=== PATIENT | female | born 1990 | race Caucasian/White ===

== ENCOUNTER → 2020-02-03 16:49 | Outpatient (CLI) | payer MEDICAID, SELFPAY ==
[2015-09-25 14:30] VITALS: BMI 24.7
[2020-02-07 20:07] LABS: Chlamydia By Nucleic Acid AMP Negative (Negative)
[2020-02-07 21:35] LABS: Gonococcus By Nucleic Acid AMP Negative (Negative)
[2020-02-08 13:57] LABS: HPV Reflexed? NOT INDICATED
== END ==
PROVIDERS: Visit Provider Obstetrics & Gynecology
DX: Z12.4 Encounter for screening for malignant neoplasm of cervix (principal); Z11.3 Encounter for screening for infections with a predominantly sexual mode of transmission
CPT/HCPCS: 87491; 87591; 88175; G0145

== ENCOUNTER 2020-04-03 14:19 | Emergency (ER) | payer MEDICAID, SELFPAY ==
[2020-04-03 14:21] VITALS: BP 118/65; PULSE 61; RESP 15; TEMP 35.3; O2SAT 97; BMI 30.3
--- NOTE | 2020-04-03 14:39 | CT_ITS ---
STUDY: CT FACIAL BONES WITHOUT CONTRAST REASON FOR EXAM: Female, 29 years old. S/P FALL HITTING HEAD X1 MONTH AGO HEADACHE,PAIN BEHIND RIGHT EYE RADIATION DOSAGE (If Supplied By Facility): CTDIvol = ( 29.38 ) mGy, DLP = ( 569.49 ) mGycm TECHNIQUE: Axial CT images of the facial bones were obtained with multiplanar reconstruction. The protocol utilizes one or more of the following dose reduction techniques: automated exposure control, adjustment of the mA and/or KV according to the patient size, and/or use of iterative reconstruction techniques. Individualized dose optimization techniques were used for this CT. COMPARISON: No relevant priors. FINDINGS: Soft Tissues: Normal: No focal or diffuse soft tissue swelling. Facial Bones: Normal: No fracture or destructive process. Mandible/TMJ: Normal. Orbital Contents: Normal globes, extraocular muscles, optic nerves, intraconal and extraconal spaces. Normal lamina papyracea. No visualized retinal or intraorbital hemorrhage. No fluid collections are seen. No visualized periorbital soft tissue swelling. Visualized Paranasal Sinuses: Normal. Visualized Mastoid Air Cells: Normal. CT/Sinus/Facial Bone IMPRESSION: Normal CT of the facial bones without contrast. Electronically Signed: Maurice Scott MD at 16:59 EST , Service support ,
--- NOTE | 2020-04-03 14:39 | CT_ITS ---
STUDY: CT BRAIN WITHOUT CONTRAST REASON FOR EXAM: Female, 29 years old. S/P FALL HITTING HEAD X1 MONTH AGO HEADACHE,PAIN BEHIND RIGHT EYE RADIATION DOSAGE (If Supplied By Facility): CTDIvol = ( 44.99 ) mGy, DLP = ( 762.36 ) mGycm TECHNIQUE: Transaxial CT imaging of the brain was performed without administration of intravenous contrast material. Individualized dose optimization techniques were used for this CT. COMPARISON: None. FINDINGS: Normal soft tissue structures. Normal calvarium. No visualized fracture. No hemorrhagic contusions of the brain parenchyma are present. No hydrocephalus or midline shift is seen. Normal size ventricles and extra-axial spaces for the patient''s age. Normal white matter tracts of the cerebral hemispheres. Normal basal ganglia and thalami. Normal brainstem. Normal cerebellum. There is no intracranial hemorrhage. There are no findings of an acute ischemic infarction. Normal visualized paranasal sinuses. CT/Brain/Head without Contrast IMPRESSION: No demonstrated acute or significant intracranial process. Electronically Signed: Maurice Scott MD at 16:55 EST , Service support ,
--- NOTE | 2020-04-03 14:48 | ED.DCSUM_ITS ---
- ER Visit Summary Date of Service: 04/03/20 Chief Complaint: Headache History of Present Illness: The patient is a 29 F presenting with headache. She states she fell on . She hit her head. She has been having headaches since that time. She went to urgent care and was advised to go to the ER. She states at that time she did not want to go to the hospital. She has been using Excedrin at home. She denies fever. Denies nausea or vomiting. She complains of pain behind right eye. She states her vision is normal today. Physical Examination: Vitals are stable. Patient is afebrile. Alert no acute distress. HEENT exam is unremarkable. PERRL, EOMI Neck is nontender Lungs are clear and equal bilaterally. Heart is regular rate and rhythm. Extremities are unremarkable. Skin is warm and dry. No focal neurologic deficit. Remainder of exam is unremarkable. Emergency Department Course and Treatment: Patient is given Reglan, Benadryl IV. CT head shows no demonstrated acute or significant intracranial process. Normal CT of the facial bones without contrast. On reevaluation, patient is resting comfortably. She is given Dr. Yu on-call for no doctor for follow-up. Advised return to ED for worsening complaints. Disposition: Discharge home Impression: Headache This note was generated with [employer] dictation software. It may contain incorrect words, spelling, and punctuation that were not noted in review of the chart prior to signing ED Disposition - Plan for ED Patient: Instructions: ED Headache Unspecified Referrals: Jackson Yu MD [NON-STAFF] -
[2020-04-03] MEDS: Metoclopramide 10 MG/2 ML Vial 5 MG IV (15:07)
[2020-04-03] MEDS: DiphenhydrAMINE 50 MG/ML Syringe 25 MG IV (15:09)
--- NOTE | 2020-04-03 17:02 | ED.DEP ---
ED Disposition - Plan for ED Patient: Instructions: ED Headache Unspecified Referrals: Jackson Yu MD [NON-STAFF] -
[2020-04-03 17:13] VITALS: BP 120/60; PULSE 60; RESP 18; O2SAT 99
== END 2020-04-03 17:16 | disposition home or self-care (01) ==
LOC: ED 14:44
PROVIDERS: Emergency Provider Emergency Medicine
DX: R51.9 Headache, unspecified (principal); Z72.0 Tobacco use
CPT/HCPCS: 70450; 70486; 96374; 96375; 99283

== ENCOUNTER 2020-10-03 19:17 | Emergency (ER) | payer MEDICAID, SELFPAY ==
[2020-10-03 19:18] VITALS: BP 113/83; PULSE 82; RESP 15; TEMP 36.3; O2SAT 100; BMI 25.6
--- NOTE | 2020-10-03 19:20 | RAD_ITS ---
STUDY: X-RAY - RIGHT FOOT CLINICAL: Female, 30 years old. INJURY TECHNIQUE: 3 view(s) of the foot. COMPARISON: None. FINDINGS: Normal talus, calcaneus, and tarsal bones. Normal visualized subtalar, talonavicular, calcaneocuboid, tarsal and tarsometatarsal articulations. Normal metatarsi. Normal metatarsophalangeal joint of the great toe. Normal tibial and fibular sesamoid bones. Normal interphalangeal joint of the great toe. Normal phalanges of the great toe. Normal second through fifth metatarsophalangeal joints. Normal interphalangeal joints and phalanges of the lesser toes. The soft tissue structures are unremarkable. There is no demonstrated fracture. RAD/Foot min 3 Views IMPRESSION: Normal x-ray examination of the foot. Electronically Signed: Maurice Scott MD at 20:19 EDT , Service support ,
--- NOTE | 2020-10-03 19:25 | RAD_ITS ---
STUDY: X-RAY - RIGHT ANKLE REASON FOR EXAM: Female, 30 years old. INJURY TECHNIQUE: 3 view(s) of the ankle. COMPARISON: None. FINDINGS: Normal visualized distal tibia and fibula. Normal medial and lateral malleoli. Normal tibiotalar articulation and ankle mortise. Normal visualized talus and calcaneus. The visualized subtalar, talonavicular, calcaneocuboid and tarsal articulations are normal. There is no demonstrated fracture. Mild soft tissue swelling is present around ankle joint. RAD/Ankle min 3 Views IMPRESSION: Mild soft tissue swelling Electronically Signed: Maurice Scott MD at 20:19 EDT , Service support ,
--- NOTE | 2020-10-03 22:18 | EX.ED.DYSGE1 ---
HPI History of Present Illness Chief Complaint: Lower Extremity Injury Informant: patient Narrative Narrative: Patient is a 30-year-old female who presents to the emergency department for right ankle injury. This occurred 2 days prior. She was getting out of a van whenever a box fell on top of her foot/ankle. She has had pain since. She occasionally gets pain shooting up the front of her jenkins. She has been taking ibuprofen for this without significant relief. She has been able to ambulate on it without significant difficulty. She denies any other injury from the fall. She is not on any blood thinning medications. PFSH PFS Medical History Smoker Home Medications NK 04/03/20 [History Last Taken Unknown] Allergy/AdvReac Type Severity Reaction Status Date / Time No Known Allergies Allergy Verified 04/03/20 14:22 Surgical History (Updated 10/03/20 @ 20:27 by Brady Cote) History of tonsillectomy and adenoidectomy Hx of section Social History Smoking Status: Current every day smoker tobacco type: cigarettes ROS ROS ED Constitutional Constitutional ED: Denies chills or fever(s) ENT ENT ED: Denies epistaxis or rhinorrhea Cardiovascular Cardiovascular: Denies chest pain Respiratory/Chest Respiratory/Chest: Denies cough or dyspnea Gastrointestinal Gastrointestinal: Denies abdominal pain, nausea or vomiting Musculoskeletal Musculoskeletal: Denies back pain or neck pain Integumentary Denies rash Neurologic Neurologic: Denies dizziness, headache(s) or weakness EXAM Physical Exam Const Vital Signs: 10/03/20 19:18 10/03/20 22:23 Temperature 97.3 F L Temperature Source Temporal Pulse Rate 82 86 Respiratory Rate 15 15 Blood Pressure 113/83 H 119/81 H Blood Pressure Mean 93 Pulse Ox 100 99 Oxygen Delivery Method Room Air Positive well nourished and well developed General Appearance ED: well developed and NAD HEENT Reports normocephalic, head/scalp atraumatic and moist mucous membranes Eyes PERRL and EOMs intact bilaterally Neck supple Resp normal respiratory effort Cardio regular rate and regular rhythm Extremity Extremity Narrative: There is bruising to right ankle. No significant swelling. Neurovascular intact. Good range of motion. Tenderness along the superior aspect of the foot. Neuro no sensory deficits noted Sensorium / Orientation: alert Motor Exam: strength 5/5 throughout Psych mental status grossly normal Skin no rashes or lesions noted MDM MDM MDM Narrative Medical decision making narrative: Patient presents the ED for ankle and foot injury. X-ray was obtained and did not reveal any acute traumatic findings. Will recommend symptomatic treatment in the meantime. She is given an Evangelist wrap here. She can use Tylenol, ibuprofen, rice. She is to follow-up with her PCP. Return precautions reviewed with her. She understands and is agreeable this plan. All questions were answered. Radiography Diagnostic Testing: Radiology Impression Foot X-Ray 10/03/20 19:20 IMPRESSION: Normal x-ray examination of the foot. Electronically Signed: Maurice Scott MD at 20:19 EDT , Service support , Ankle X-Ray 10/03/20 19:25 IMPRESSION: Mild soft tissue swelling Electronically Signed: Maurice Scott MD at 20:19 EDT , Service support , Discharge Plan Triage Chief Complaint: Lower Extremity Injury ED Provider: Baltazar Delgado Dx/Rx/DC Orders Clinical Impression: Ankle sprain Instructions: ED Ankle Sprain (Adult) Prescriptions: No Action NK RF: 0 Primary Care Provider: Care Physician,No Primary Referrals: Care Physician,No Primary [Primary Care Provider] - 1 Week if not improving Disposition Disposition: Home, Self Care Discharge Date/Time: 10/03/20 22:24
[2020-10-03 22:23] VITALS: BP 119/81; PULSE 86; RESP 15; O2SAT 99
== END 2020-10-03 22:24 | disposition home or self-care (01) ==
PROVIDERS: Emergency Provider Emergency Medicine
DX: S93.401A Sprain of unspecified ligament of right ankle, initial encounter (principal); W22.8XXA Striking against or struck by other objects, initial encounter; Y93.89 Activity, other specified; Y92.818 Other transport vehicle as the place of occurrence of the external cause; Y99.9 Unspecified external cause status; F17.210 Nicotine dependence, cigarettes, uncomplicated
CPT/HCPCS: 73610; 73630; 99282